=== PATIENT | male | born 1995 | race Two or more races ===

== ENCOUNTER 2024-09-21 16:18 | Emergency (ER) | payer SELFPAY ==
[~2024-09-21] VITALS: Ht 193 cm; Wt 88.0 kg
[2024-09-21 16:27] VITALS: O2SAT 100
[2024-09-21 16:48] LABS: CLARITY URINE CLOUDY (CLEAR); COLOR URINE YELLOW (YELLOW); GLUCOSE URINE NEGATIVE (NEGATIVE); KETONES URINE TRACE (NEGATIVE); LEUKOCYTE ESTERASE URINE 3+ (NEGATIVE); NITRITE URINE NEGATIVE (NEGATIVE); OCCULT BLOOD URINE NEGATIVE (NEGATIVE); PH URINE 6.5 (4.5-8.0); PROTEIN URINE TRACE (NEGATIVE); SPECIFIC GRAVITY URINE 1.027 (1.005-1.030)
[2024-09-21 17:12] LABS: BACTERIA URINE 2+; RBC URINE 0-2 /hpf (0-2); SQUAMOUS EPITHELIAL CELL URINE 1+ /lpf (RARE/1+); WBC URINE TNTC /hpf (0-2)
[2024-09-21] MEDS ORDERED: CEFP200T14 MT (17:59)
[2024-09-21] MEDS ORDERED: BO1 TP (18:02)
[2024-09-21] MEDS: TETANUS, DIPHTHERIA, PERTUSSIS VAC/PF 0.5ML (>10YR OLD) IM ONE (18:11)
[2024-09-21 18:23] VITALS: BP 126/70; PULSE 76; RESP 16; TEMP 36.55848; O2SAT 99
== END 2024-09-21 18:24 | disposition home or self-care (01) ==
LOC: ER 16:18
DX: S81.852A Open bite, left lower leg, initial encounter (principal); W54.0XXA Bitten by dog, initial encounter; Y93.89 Activity, other specified; Y92.89 Other specified places as the place of occurrence of the external cause; Y99.8 Other external cause status
CPT/HCPCS: 81003; 90471; 90715; 99283